=== PATIENT | male | born 1990 | race Two or more races ===

== ENCOUNTER 2021-09-05 22:58 | Emergency (ER) | payer BC, MEDICAID ==
[~2021-09-05] VITALS: Ht 177.8 cm; Wt 113.4 kg
[2021-09-06 08:39] VITALS: BP 128/77
[2021-09-06] MEDS ORDERED: KETOROLAC TROMETH 60MG/2ML VIAL IM ONE (08:45)
== END 2021-09-06 09:20 | disposition home or self-care (01) ==
LOC: ER 23:00
DX: G44.009 Cluster headache syndrome, unspecified, not intractable (principal); F17.210 Nicotine dependence, cigarettes, uncomplicated; Z88.0 Allergy status to penicillin
CPT/HCPCS: 96372; 99283; J1885